=== PATIENT | female | born 1975 | race African-American/Black ===

== ENCOUNTER 2018-05-08 11:51 | Emergency (ER) | END 2018-05-08 15:51 | disposition home or self-care (01) ==

== ENCOUNTER 2019-03-09 16:17 | Emergency (ER) | payer SELFPAY ==
[~2019-03-09] VITALS: Ht 162.6 cm; Wt 77.6 kg
[~2019-03-09 16:17] MED LIST: IBUP-1561 PO
[2019-03-09 16:22] VITALS: BP 129/79; PULSE 72; RESP 16; Ht 162.6 cm; Wt 77.6 kg
== END 2019-03-09 17:00 | disposition left against medical advice (07) ==
LOC: E/R 16:17
DX: M54.5 Low back pain (principal); R51 Headache
CPT/HCPCS: 99282